=== PATIENT | female | born 1980 | race Caucasian/White ===

== ENCOUNTER 2022-07-21 19:21 | Emergency (ER) | payer OTHER ==
[~2022-07-21] VITALS: Ht 170.2 cm; Wt 240.0 kg
[2022-07-21] MEDS ORDERED: HYDR-3490 PO (19:56)
[2022-07-21 22:31] LABS: BASO % 0.2 % (0.0-1.0); EOS % 0.2 % (0.0-3.0); HEMATOCRIT 37.8 % (36.0-47.0); HEMOGLOBIN 11.4 g/dl (12.0-15.5); LYMPH # 0.3 10^3/uL (1.5-5.0); LYMPH % 4.5 % (24.0-44.0); MEAN CORPUSCULAR HEMOGLOBIN 23.8 pg (27.0-33.0); MEAN CORPUSCULAR HGB CONC 30.2 g/dl (32.0-36.5); MEAN CORPUSCULAR VOLUME 78.9 fl (80.0-96.0); MONO # 0.4 10^3/uL (0.0-0.8); MONO % 6.8 % (2.0-8.0); NEUTROPHILS # 5.4 10^3/uL (1.5-8.5); PLATELET COUNT, AUTOMATED 136 10^3/uL (150-450); RED BLOOD COUNT 4.79 10^6/uL (4.00-5.40); WHITE BLOOD COUNT 6.2 10^3/uL (4.0-10.0)
[2022-07-21 22:42] LABS: INR 1.02; PROTHROMBIN TIME 13.6 SECONDS (12.5-14.5)
[2022-07-21 22:56] LABS: LIPASE 55 U/L (12-53)
[2022-07-21 22:58] LABS: ALBUMIN 3.4 G/DL (3.2-5.2); ALKALINE PHOSPHATASE 143 U/L (46-116); ALT/SGPT 125 U/L (7.0-40); AMYLASE 67 U/L (30-118); AST/SGOT 211 U/L (<34); BILIRUBIN,DIRECT 0.2 MG/DL (<0.4); BILIRUBIN,TOTAL 0.5 MG/DL (0.3-1.2); BLOOD UREA NITROGEN 20 MG/DL (9-23); CALCIUM LEVEL 7.5 MG/DL (8.5-10.1); CARBON DIOXIDE LEVEL 23 MMOL/L (20-31); CHLORIDE LEVEL 108 MMOL/L (98-107); GLOMERULAR FILTRATION RATE > 60.0 (>58); GLUCOSE, FASTING 132 MG/DL (60-100); POTASSIUM SERUM 4.1 MMOL/L (3.5-5.1); SODIUM LEVEL 136 MMOL/L (136-145); TOTAL PROTEIN 6.6 G/DL (5.7-8.2)
[2022-07-22] MEDS ORDERED: PANTOPRAZOLE 40MG VIAL IV ONE (07:20)
[2022-07-22] MEDS ORDERED: GI COCKTAIL 50ML BTL(HYOSCYAMINE/MAALOX/LIDOCAINE VISCOUS)(1:3:1) PO ONE (07:20)
[2022-07-22] MEDS ORDERED: NS 1,000 ML IV ONE (07:20)
[2022-07-22] MEDS ORDERED: ONDANSETRON 4MG 2ML VIAL IV ONE (07:20)
[2022-07-22] MEDS: GASTROGRAFIN SOLUTION 30ML PO SCH ×2 (08:32→09:13)
[2022-07-22 08:54] LABS: CK-MB VALUE MASS < 1.0 NG/ML (<3.6); CPK CREATINE PHOSPHOKINASE 189 U/L (34-145); MB/CK RELATIVE INDEX 0.52 (< OR =4)
[2022-07-22] MEDS ORDERED: ISOVUE-370 76% 100ML VIAL As Ordered ONE (09:28)
[2022-07-22 09:54] LABS: CK-MB VALUE MASS < 1.0 NG/ML (<3.6)
[2022-07-22 09:57] LABS: CPK CREATINE PHOSPHOKINASE 158 U/L (34-145); MB/CK RELATIVE INDEX 0.63 (< OR =4)
[2022-07-22] MEDS ORDERED: OMEP40CA4 PO (11:11)
[2022-07-22] MEDS ORDERED: ONDA4TAB6 PO (11:15)
[2022-07-22 11:25] VITALS: BP 115/68
== END 2022-07-22 11:58 | disposition home or self-care (01) ==
LOC: EDBD 19:21 → M ED 19:21
DX: A08.11 Acute gastroenteropathy due to Norwalk agent (principal); R74.01 Elevation of levels of liver transaminase levels; K42.9 Umbilical hernia without obstruction or gangrene; D69.6 Thrombocytopenia, unspecified; K76.0 Fatty (change of) liver, not elsewhere classified; Z88.5 Allergy status to narcotic agent; Z98.84 Bariatric surgery status; Z79.83 Long term (current) use of bisphosphonates; Z79.899 Other long term (current) drug therapy
CPT/HCPCS: 71046; 74177; 76705; 80053; 80076; 81002; 82150; 82550; 82553; 83690; 84702; 85025; 85610; 87486; 87507; 87581; 87633; 87798; 93005; 93041; 96361; 96374; 99284; C9113; J2405